=== PATIENT | female | born 1985 | race Caucasian/White ===

== ENCOUNTER 2021-04-07 23:14 | Emergency (ER) | payer OTHER ==
[~2021-04-07] VITALS: Ht 165.1 cm; Wt 61.2 kg
[2021-04-07 23:44] VITALS: BP 124/77
[2021-04-07] MEDS ORDERED: IBU600 MG PO (23:54)
[2021-04-07] MEDS ORDERED: NEURONTIN 400400 M1 PO (23:54)
[2021-04-08] MEDS ORDERED: SEROQUEL300 MG PO (00:08)
[2021-04-08] MEDS ORDERED: DESYREL150 MG PO (00:09)
[2021-04-08] MEDS ORDERED: EQUETRO100 MG PO (00:09)
== END 2021-04-08 00:05 | disposition home or self-care (01) ==
LOC: ER 23:14
DX: G62.9 Polyneuropathy, unspecified (principal); M79.641 Pain in right hand; F20.9 Schizophrenia, unspecified; Z79.899 Other long term (current) drug therapy

== ENCOUNTER 2021-04-26 10:50 | Emergency (ER) | payer OTHER ==
[~2021-04-26] VITALS: Ht 165.1 cm; Wt 6.3 kg
--- NOTE | ~2021-04-26 | EMS ---
[address] [address] EMS Patient Care Report Name: AZAM KING Room #: DEP ELLIE Oliveros#: [id number] Admission: 04/26/21 Attend Phys: Discharge: 04/26/21 Date of : [birth year] Report #: [id number] THIS REPORT FOR: //name// Report Transmitted: 04/28/2021 10:05 EMS Care Summary [place], [place]/[facility] Incident [id number] @ 04/26/2021 10:15 Incident Location [address] [place] [address] Patient AZAM KING Female, 35 Years 1985 Patient Address Patient History Schizophrenia,Post Traumatic Stress Disorder (PTSD), Patient Allergies No known allergies, Patient Medications Trazodone, Carbamazepine, Gabapentin, Chief Complaint NUMBNESS AND TINGLING IN ARMS ALONG WITH ANXIETY Disposition Transported No Lights/[place] Dispatch Reason Sick Person Transported To [facility] Narrative M36 ARRIVED ON SCENE AND FOUND OUR PT WHO WAS AMBULATORY AND ABLE TO WALK TO THE AMBULANCE ON HER OWN POWER WHERE SHE SEATED HERSELF IN THE JUMPER SEATS AND SEAT BELTED HERSELF ALONG WITH PUTTING ON A SURGICAL MASK. THE PT STATED SHE HAD BEEN EXPERIENCING NUMBNESS AND TINGLING IN BOTH OF HER LEFT AND RIGHT ARMS/HANDS ALONG WITH SOME ANXIETY DUE TO HER PAST TRAUMTIC INCIDENTS. VITALS TAKEN. THE PT WISHED TO BE TRANSPORTED TO [facility], WHILE EN ROUTE [address] [address] EMS Patient Care Report Name: AZAM KING Room #: DEP Arlin#: [id number] Admission: 04/26/21 Attend Phys: Discharge: 04/26/21 Date of : [birth year] Report #: [id number] THE PT WAS UNCHANGED. UPON ARRIVAL AT THE FACILITY, THE PT WAS AMBULATORY AND ABLE TO WALK HERSELF TO THE TRIAGE AREA AND SEAT HERSELF. REPORT GIVEN TO NURSE. Initial Vitals @10:31P: 115,R: 15,BP: 119/78,Pain: 2/10,GCS: 15,SpO2: 97,Revised Trauma: 12, @10:38P: 98,R: 15,BP: 127/71,Pain: 2/10,GCS: 15,CO: 2,SpO2: 96,Revised Trauma: 12, Assessments @10:27MENTAL:Event Oriented,Person Oriented,Place Oriented,Time Oriented,SKIN:HEENT:Head/Face: No Abnormalities,Neck/Airway: No Abnormalities,LUNG SOUNDS:General: No Abnormalities,Left Upper: No Abnormalities,Right Upper: No Abnormalities,Left Lower: No Abnormalities,Right Lower: No Abnormalities,ABDOMEN:General: No Abnormalities,Left Upper: No Abnormalities,Right Upper: No Abnormalities,Left Lower: No Abnormalities,Right Lower: No Abnormalities,PELVIS//GI:EXTREMITIES:Capillary Refill: Right Upper: < 2 Sec,Left Arm: No Abnormalities,Right Arm: No Abnormalities,Left Leg: No Abnormalities,Right Leg: No Abnormalities,PULSE:Radial: 2+ Normal,NEURO:No Abnormalities, Impression Behavioral/psychiatric episode Procedures @10:27 ALS AssessmentSucceeded @10:27 BLS Assessment Response: Unchanged Timeline 10:13,Call Received 10:13,Dispatch Notified 10:15,Dispatched 10:16,En Route 10:25,On Scene 10:27,At Patient 10:27,ALS Assessment,Succeeded, 10:27,BLS Assessment,Response: Unchanged 10:31,BP: 119/78 M,PULSE: 115,RR: 15 R,SPO2: 97 Ox,ETCO2: ,BG: ,PAIN: 2,GCS: 15, 10:33,Depart Scene 10:38,BP: 127/71 M,PULSE: 98,RR: 15 R,SPO2: 96 Ox,ETCO2: ,BG: ,PAIN: 2,GCS: 15, 10:46,At Destination 10:57,Call Closed Disclaimer [address] [address] EMS [facility]: [facility]P ER Arlin#: [id number] Admission: 04/26/21 Attend Phys: Discharge: 04/26/21 Date of : 83 Report #: [id number] v1.1 Copyright 2020 [employer] This EMS Care Summary contains data elements from the applicable legal record (which may be displayed differently). It is designed to provide pertinent information for the following purposes: continuity of care, clinical quality, and state data reporting. The complete legal record is available to ED staff and administrators of the receiving hospital in [facility]'s Patient Tracker. All data is provided "as is."
[~2021-04-26 10:50] MED LIST: DESYREL150 MG PO; EQUETRO100 MG PO; IBU600 MG PO; NEURONTIN 400400 M1 PO; SEROQUEL300 MG PO
[2021-04-26 18:24] VITALS: BP 116/61
== END 2021-04-26 18:28 | disposition home or self-care (01) ==
LOC: ER 10:50
DX: F25.9 Schizoaffective disorder, unspecified (principal); M79.642 Pain in left hand; M79.641 Pain in right hand; F17.200 Nicotine dependence, unspecified, uncomplicated; Z79.899 Other long term (current) drug therapy

== ENCOUNTER 2021-06-05 17:09 | Emergency (ER) | payer OTHER ==
[~2021-06-05] VITALS: Ht 165.1 cm; Wt 65.8 kg
== END 2021-06-05 18:30 ==
LOC: ER 17:09
DX: S91.332A Puncture wound without foreign body, left foot, initial encounter (principal); F20.9 Schizophrenia, unspecified; Z79.899 Other long term (current) drug therapy; W22.8XXA Striking against or struck by other objects, initial encounter; Y93.89 Activity, other specified; Y92.89 Other specified places as the place of occurrence of the external cause; Y99.8 Other external cause status